=== PATIENT | female | born 1940 | race African-American/Black ===

== ENCOUNTER 2018-09-10 08:44 | Inpatient (IN) | payer OTHER, BC ==
[2018-09-05 14:56] VITALS: BMI 26.5
[2018-09-10] MEDS ORDERED: BUPIVACAINE LIPOSOME/PF (EXPAREL) 266 MG/20 ML VIAL ONE (10:30)
[2018-09-10] MEDS ORDERED: MIDAZOLAM HCL 2 MG/2 ML SINGLE DOSE VIAL ONE (10:30)
[2018-09-10] MEDS ORDERED: BUPIVACAINE HCL/PF 2.5 MG/ML - 30 ML VIAL IJ ONE (10:31)
--- NOTE | 2018-09-10 11:14 | HP ---
History & Physical Update - History History: No Change - Physical Physical: No Change - Assessment Assessment: No Change - Plan Plan: No Change
[2018-09-10] MEDS ORDERED: GUM MASTIC/STORAX/MSAL/ALCOHOL 1 DRP DROPSBTL MC ONE (11:39)
[2018-09-10] MEDS ORDERED: THROMBIN (BOVINE) 5,000 UNIT VIAL TP ONE ×2 (11:39→13:01)
[2018-09-10] MEDS ORDERED: ONDANSETRON 4 MG/2 ML VIAL ONE (11:41)
[2018-09-10] MEDS ORDERED: DEXAMETHASONE SOD PHOSPHATE 4 MG/1 ML VIAL ONE (11:41)
[2018-09-10] MEDS ORDERED: KETOROLAC TROMETHAMINE 30 MG/1 ML VIAL ONE (11:41)
[2018-09-10] MEDS ORDERED: ceFAZolin SODIUM 1 GM VIAL ONE (12:16)
[2018-09-10] MEDS ORDERED: GELATIN SPONGE,ABSORBABLE 1 GM PACKET TP ONE (13:02)
[2018-09-10] MEDS ORDERED: oxyCODONE HCL 5 MG TABLET PO PRN (14:36)
[2018-09-10] MEDS ORDERED: ONDANSETRON 4 MG/2 ML VIAL IVPUSH PRN (14:36)
[2018-09-10] MEDS ORDERED: PANTOPRAZOLE 40 MG TABLET (FP) PO SCH ×2 (14:40→14:45)
[2018-09-10] MEDS ORDERED: LACTATED RINGERS SOLUTION 1,000 ML IV SCH ×2 (14:45)
--- NOTE | 2018-09-10 14:45 | OP ---
Operative Note - Note: Operative Date: 09/10/18 Pre-Operative Diagnosis: lumbar stenosis L5-S1 Operation: posterior lumbar decompression, instrumentation, fusion of L5-S1 with transforaminal interbody fusion of L5-S1, allograft and neuromonitoring Surgeon: Mayank Velez Bank Examiner: Sheri Vasquez Anesthesiologist/HEATING AND BLENDING SUPERVISOR: Benjamin Newby Anesthesia: Spinal Estimated Blood Loss (mls): 20 Fluid Volume Replaced (mls): 1,000 Operative Report Dictated: Yes
[2018-09-10] MEDS: ACETAMINOPHEN 325 MG TABLET (FP) PO SCH ×2 (16:10→21:33)
[2018-09-10] MEDS: oxyCODONE HCL 5 MG TABLET PO PRN ×2 (16:46→21:33)
[2018-09-10] MEDS ORDERED: diazePAM 2 MG TABLET PO PRN (18:00)
[2018-09-10] MEDS: CEFAZOLIN 1 GM/D5W 1 GM/50 ML BAG IVPB SCH (21:34)
[2018-09-11] MEDS: CEFAZOLIN 1 GM/D5W 1 GM/50 ML BAG IVPB SCH (03:06)
[2018-09-11] MEDS: ACETAMINOPHEN 325 MG TABLET (FP) PO SCH ×2 (03:07→09:29)
[2018-09-11 06:36] VITALS: TEMP 97.8
--- NOTE | 2018-09-11 07:28 | OP ---
DATE OF OPERATION: 09/10/2018 PREOPERATIVE DIAGNOSIS: 1. Spinal stenosis, L5-S1. 2. Spondylolisthesis, L5-S1.. POSTOPERATIVE DIAGNOSIS: 1. Spinal stenosis, L5-S1. 2. Spondylolisthesis, L5-S1. PROCEDURES PERFORMED: 1. Transforaminal lumbar interbody fusion, L5-S1. 2. Placement of instrumentation, L5-S1. 4. Placement of prosthetic cage. SURGEON: Mayank Velez MD AGENCY TRAINER: HAIDER Suarez ESTIMATED BLOOD LOSS: 50 mL. INTRAVENOUS FLUID: Per Anesthesia. ANESTHESIA: Spinal/TLIP block. COMPLICATIONS: There were none. DISPOSITION: Patient brought to the PACU in stable condition. INDICATIONS FOR SURGERY: The patient is a 78-year-old female who has been suffering from pain from her back down her leg. X-rays and MRI were completed, which noted that she had spondylolisthesis at L5-S1 given her spinal stenosis at that level. She had gone through an exhaustive course of treatment for this which included medications, physical therapy, as well as injections. Unfortunately, her pain continued to persist despite all this. At this point, risks, benefits, and alternatives were discussed, and the patient consented to surgery. OPERATIVE NOTE: Patient was brought to the operating room by the anesthesia staff. After appropriate patient identification was performed and spinal anesthesia was given, a TLIP block was also given. Patient was able to position herself prone onto the OR table with all areas of bony prominences well-padded at this time. The C-arm was brought in. The L5-S1 pedicles were marked off. The back was prepped and draped in a sterile manner. At this point, a time-out was completed. An incision was made bilaterally at the L5-S1 pedicles. Dissection was carried down to the fascia. Fascia was then split open at this time. Under C-arm guidance, trocars were advanced into both the L5 and S1 pedicles. Through the trocars, wire was inserted, and tap was performed. On the left-hand side, retractable blades were set up to expose the L5-S1 facet joint. The face joint was removed. The disc was entered using a series of pituitaries, Kerrisons, and curettes. A discectomy was completed. The end-plates were decorticated at this time. Bone graft was placed into the disc space. A cage filled with bone graft was placed in. Tulip heads were placed over the screws. A chet was then measured and placed in. Caps and compression were applied. On the right-hand side, a chet was measured and placed on. Caps and compression were applied. AP and lateral x-rays confirmed the instrumentation to be in good position. The fascia was closed with a No. 1 Vicryl suture. The subcutaneous tissues were closed with 2-0 Vicryl suture. Skin was closed with 3-0 Monocryl suture. Dermabond was applied. Steri-Strips were applied. Sterile dressings applied. Patient was placed supine on the OR bed and brought to the PACU in stable condition. Oswald ARSHAD/[id number]
[2018-09-11 07:52] LABS: HEMATOCRIT 35.7 % (32.4-45.2); HEMOGLOBIN 11.7 GM/dl (10.7-15.3); MCH 29.8 pg (25.7-33.7); MCHC 32.8 g/dl (32.0-36.0); MEAN CELL VOLUME 90.9 fl (80-96); PLATELET COUNT 275 K/MM3 (134-434); RBC 3.93 M/mm3 (3.60-5.2); RDW 13.5 % (11.6-15.6)
[2018-09-11 08:07] LABS: ANION GAP 9 MMOL/L (8-16); BLOOD UREA NITROGEN 17 mg/dl (7-18); CALCIUM 10.1 mg/dl (8.4-10.2); CHLORIDE 105 mmol/L (98-107); CO2 25 mmol/L (22-28); CREATININE 0.8 mg/dl (0.6-1.3); GLUCOSE,RANDOM 114 mg/dl (74-106); POTASSIUM 4.1 mmol/L (3.5-5.1); SODIUM 139 mmol/L (136-145)
--- NOTE | 2018-09-11 08:50 | DS ---
Physical Exam: SUBJECTIVE: Patient seen and examined OBJECTIVE: Vital Signs Temperature 97.8 F 09/11/18 06:00 Pulse Rate 58 L 09/11/18 06:00 Respiratory Rate 18 09/11/18 08:29 Blood Pressure 113/54 L 09/11/18 06:00 O2 Sat by Pulse Oximetry (%) 97 09/11/18 08:29 PHYSICAL EXAM GENERAL: The patient is awake, alert, and fully oriented, in no acute distress. LUNGS: Breath sounds equal, clear to auscultation bilaterally, no wheezes, no crackles, no accessory muscle use. HEART: Regular rate and rhythm. EXTREMITIES: 2+ pulses, warm, well-perfused, no edema. 5/5 dorsi/plantar flexion b/l. No calf tenderness or swelling noted. NEUROLOGICAL: Normal speech, gait not observed. PSYCH: Normal mood, normal affect. LABS CBC,CMP WBC 15.0 K/mm3 (4.0-10.8) H 09/11/18 07:10 RBC 3.93 M/mm3 (3.60-5.2) 09/11/18 07:10 Hgb 11.7 GM/dl (10.7-15.3) 09/11/18 07:10 Hct 35.7 % (32.4-45.2) 09/11/18 07:10 MCV 90.9 fl (80-96) 09/11/18 07:10 MCH 29.8 pg (25.7-33.7) 09/11/18 07:10 MCHC 32.8 g/dl (32.0-36.0) 09/11/18 07:10 RDW 13.5 % (11.6-15.6) 09/11/18 07:10 Plt Count 275 K/MM3 (134-434) 09/11/18 07:10 MPV 9.0 fl (7.5-11.1) 09/11/18 07:10 Sodium 139 mmol/L (136-145) 09/11/18 07:10 Potassium 4.1 mmol/L (3.5-5.1) 09/11/18 07:10 Chloride 105 mmol/L (98-107) 09/11/18 07:10 Carbon Dioxide 25 mmol/L (22-28) 09/11/18 07:10 Anion Gap 9 MMOL/L (8-16) 09/11/18 07:10 BUN 17 mg/dl (7-18) 09/11/18 07:10 Creatinine 0.8 mg/dl (0.6-1.3) 09/11/18 07:10 Creat Clearance w eGFR > 60 (>60) 09/11/18 07:10 Random Glucose 114 mg/dl (74-106) H 09/11/18 07:10 Calcium 10.1 mg/dl (8.4-10.2) 09/11/18 07:10 HOSPITAL COURSE: The patient was admitted to the Med-Surg Unit after an elective repair of their L5-S1 spondylolithesis. Now, s/p L5-S1 posterior fusion. The day of surgery, the patient ambulated the hallways with assistance. Narcotic and non-narcotic pain management control was achieved with an oral and IV approach. An xray was obtained and confirmed hardware placement at L5-S1, no fractures or dislocations. Daisha-operative IV ABX were administered. DVT prophylaxis was achieved with SCDs and early ambulation. The patient ambulated with Physical Therapy and no services were recommended upon discharge. Narcotic scripts and or muscle relaxants were checked with [place] [employer] prior to escibe. The discharge instructions and an oral pain management plan were reviewed with the patient. All questions answered. Above plan discussed with Dr. Velez and agreed. Date of Admission:09/10/18 Date of Discharge: 09/11/18 <Sheri Vasquez - Last Filed: 09/11/18 08:47> Physical Exam: SUBJECTIVE: Patient seen and examined OBJECTIVE: Vital Signs Temperature 97.8 F 09/11/18 06:00 Pulse Rate 75 09/11/18 09:36 Respiratory Rate 18 09/11/18 09:36 Blood Pressure 114/50 L 09/11/18 09:36 O2 Sat by Pulse Oximetry (%) 99 09/11/18 09:36 PHYSICAL EXAM GENERAL: The patient is awake, alert, and fully oriented, in no acute distress. HEAD: Normal with no signs of trauma. EYES: PERRL, extraocular movements intact, sclera anicteric, conjunctiva clear. ENT: Ears normal, nares patent, oropharynx clear without exudates, moist mucous membranes. NECK: Trachea midline, full range of motion, supple. LUNGS: Breath sounds equal, clear to auscultation bilaterally, no wheezes, no crackles, no accessory muscle use. HEART: Regular rate and rhythm, S1, S2 without murmur, rub or gallop. ABDOMEN: Soft, nontender, nondistended, normoactive bowel sounds, no guarding, no rebound, no hepatosplenomegaly, no masses. EXTREMITIES: 2+ pulses, warm, well-perfused, no edema. NEUROLOGICAL: Cranial nerves II through XII grossly intact. Normal speech, gait not observed. PSYCH: Normal mood, normal affect. SKIN: Warm, dry, normal turgor, no rashes or lesions noted. LABS CBC,CMP WBC 15.0 K/mm3 (4.0-10.8) H 09/11/18 07:10 RBC 3.93 M/mm3 (3.60-5.2) 09/11/18 07:10 Hgb 11.7 GM/dl (10.7-15.3) 09/11/18 07:10 Hct 35.7 % (32.4-45.2) 09/11/18 07:10 MCV 90.9 fl (80-96) 09/11/18 07:10 MCH 29.8 pg (25.7-33.7) 09/11/18 07:10 MCHC 32.8 g/dl (32.0-36.0) 09/11/18 07:10 RDW 13.5 % (11.6-15.6) 09/11/18 07:10 Plt Count 275 K/MM3 (134-434) 09/11/18 07:10 MPV 9.0 fl (7.5-11.1) 09/11/18 07:10 Sodium 139 mmol/L (136-145) 09/11/18 07:10 Potassium 4.1 mmol/L (3.5-5.1) 09/11/18 07:10 Chloride 105 mmol/L (98-107) 09/11/18 07:10 Carbon Dioxide 25 mmol/L (22-28) 09/11/18 07:10 Anion Gap 9 MMOL/L (8-16) 09/11/18 07:10 BUN 17 mg/dl (7-18) 09/11/18 07:10 Creatinine 0.8 mg/dl (0.6-1.3) 09/11/18 07:10 Creat Clearance w eGFR > 60 (>60) 09/11/18 07:10 Random Glucose 114 mg/dl (74-106) H 09/11/18 07:10 Calcium 10.1 mg/dl (8.4-10.2) 09/11/18 07:10 HOSPITAL COURSE: Date of Admission:09/10/18 Date of Discharge: 09/11/18 Patient seen and examined Agree with above D/C Planning Minutes to complete discharge: 30 <Mayank Velez - Last Filed: 09/13/18 12:52>
[2018-09-11 09:37] VITALS: BP 114/50; PULSE 75
--- NOTE | 2018-09-11 10:19 | PN ---
Progress Note (short form) - Note Progress Note: 78F POD1 s/p L5-S1 fusion under spinal anesthetic with bilateral TLIP blocks for post operative pain relief. Pt states that her pain is well controlled and reports no anesthetic complications. AVSS. Continue current regimen.
--- NOTE | 2018-09-11 10:43 | SURG ---
Surgery Call Center Consultant Note Call Center Consultant: Sheri Vasquez PA-C Date of Service: 09/10/18 Diagnosis: lumbar spondylolithesis Procedure: posterior lumbar decompression, instrumentation, fusion of L5-S1 with transforaminal interbody fusion of L5-S1, allograft and neuromonitoring I was present for the entirety of the operative procedure. For further detail, please refer to operative report. Visit type - Case Type Case Type: Scheduled - Emergency Emergency Visit: No - New patient This patient is new to me today: Yes Date on this admission: 09/10/18
== END 2018-09-11 12:45 | disposition home or self-care (01) | DRG 460 ==
LOC: FM/S 08:44
PROVIDERS: ADMIT Orthopaedic Surgery Orthopaedic Surgery of the Spine; ATTEND Orthopaedic Surgery Orthopaedic Surgery of the Spine
PROC: 0SB40ZZ Excision of Lumbosacral Disc, Open Approach (ICD-10-PCS; 2018-09-10)
PROC: 4A1004G Monitoring of Central Nervous Electrical Activity, Intraoperative, Open Approach (ICD-10-PCS; 2018-09-10)
PROC: 0SG30AJ Fusion of Lumbosacral Joint with Interbody Fusion Device, Posterior Approach, Anterior Column, Open Approach (ICD-10-PCS; principal; 2018-09-10 12:46)
DX: M43.17 Spondylolisthesis, lumbosacral region (principal); M48.07 Spinal stenosis, lumbosacral region
CPT/HCPCS: 36415; 72100-TC-FY; 80048; 85027; 94760; 97116-GP; 97161-GP